=== PATIENT | female | born 1940 | race Caucasian/White ===

== ENCOUNTER 2022-02-01 06:21 | Outpatient (CLI) | payer MEDICARE, SELFPAY ==
--- NOTE | 2022-02-01 06:30 | CT_ITS ---
WS: [id number] CT LUMBAR SPINE TECHNIQUE: Noncontrast CT of the lumbar spine with coronal and sagittal reformatted images. CLINICAL INFORMATION: incapacitating lumbar / right leg pain 8 days COMPARISON: None. DLP: 1445.[address] scans at [facility] use at least one of these dose optimization techniques: automated e xposure control; mA and/or kV adjustment per patient size (includes targeted exams where dose is matc hed to clinical indication); or iterative reconstruction. FINDINGS: Thoracolumbar scoliosis. Lumbar curve convex RIGHT. No acute compression fractures. Grade 1 anterolis thesis L3 on L4. Disc space narrowing lower thoracic and lumbar spine with vacuum disc phenomenon. Di sc space narrowing worse at L3-L4 L4-L5. No acute appearing compression fractures. Degenerative arthr itis sacroiliac joints. Osteopenia. Lung bases are well aerated. Small esophageal hiatal hernia. Sple ramy artery calcification. Adrenal glands are normal. L1-L2: Mild annular bulging. Slight narrowing of the subarticular recess bilaterally. Mild bilateral foraminal narrowing. L2-L3: Mild disc bulging with osteophytic ridging. Mild central canal stenosis. Narrowing of the suba rticular recess bilaterally. Mild LEFT foraminal narrowing. Moderate facet arthropathy. L3-L4: Grade 1 anterolisthesis. Mild disc bulging with osteophytic ridging. Moderate central canal st enosis with impingement traversing L4 nerve roots. Advanced facet arthropathy. Moderate LEFT foramina l narrowing impinges the exiting LEFT L3 nerve root. L4-L5: Mild disc bulging and osteophytic ridging. Moderate facet arthropathy. Spinal canal is patent. Mild LEFT foraminal narrowing. L5-S1: Spinal canal and foramen are patent. Mild facet arthropathy. Incidental benign hemangiomas T12 and L1. CT/CT lumbar spine wo con* [id number] IMPRESSION: 1. Mild lumbar curve. No acute compression. 2. Mild central canal stenosis L2-L3 and moderate central canal stenosis L3-L4 with impingement traversing L4 nerve roots bilaterally. 3. Mild to moderate foraminal narrowing worse at LEFT L2-L3, LEFT L3-L4, 4. Moderate to advanced facet arthropathy L3-L4 L4-L5.
== END 2022-02-01 06:22 | disposition home or self-care (01) ==
PROVIDERS: PCP Family Medicine; Visit Provider Family Medicine
DX: M51.16 Intervertebral disc disorders with radiculopathy, lumbar region (principal); M51.36 Other intervertebral disc degeneration, lumbar region; M79.604 Pain in right leg; M48.061 Spinal stenosis, lumbar region without neurogenic claudication; M47.816 Spondylosis without myelopathy or radiculopathy, lumbar region; E11.9 Type 2 diabetes mellitus without complications
CPT/HCPCS: 72131; 80053; 83036; 85025

== ENCOUNTER 2022-04-13 15:00 | Inpatient (IN) | payer MEDICARE, SELFPAY ==
[2022-04-13 18:01] VITALS: BP 138/71; PULSE 93; RESP 19; O2SAT 97
--- NOTE | 2022-04-13 18:04 | PM.HP ---
Providers/Chief Complaint Admitting Physician: Rajesh England DPM Primary Care Provider: Rory Morton MD Chief Complaint: Left ft pain/ osteo History of Present Illness Sindy Acuña is a 81 year old female with past medical history of diabetes was sent from wound care clinic for management of severe infection of the left first metatarsal phalangeal joint with abscess formation.She is due for partial first ray amputation of the left foot by podiatry.Currently she will go on I.V ABxs and will be kept NPO after midnight. He Vitals and labs have been reviewed. Review of Systems General: Reports: 10 or more systems reviewed and unremarkable except in HPI and below Const: Denies: fever(s), chills, body aches, change in appetite or diaphoresis Card: Denies: palpitations, edema, swelling of feet/ankles, dyspnea on exertion, orthopnea or leg pain with exertion Resp: Denies: dyspnea, productive cough, wheezing or pain on inspiration GI: Denies: abdominal pain, nausea, vomiting, diarrhea or constipation : Denies: flank pain Musc: Denies: back pain, extremity pain or extremity swelling Neuro: Reports: difficulty walking; Denies: headache(s) or confusion Medications/Allergies Home Medications Medication Instructions Recorded Confirmed Last Taken Type aspirin 81 mg tablet,delayed 81 mg PO DAILY 01/29/22 04/13/22 Unknown History release (Adult Aspirin Regimen) cinnamon bark 500 mg capsule 500 mg PO DAILY 01/29/22 04/13/22 Unknown History cephalexin 750 mg capsule 750 mg PO BID #20 caps 04/10/22 04/13/22 Unknown Rx furosemide 20 mg tablet 20 mg PO QAM #20 tabs 04/10/22 04/13/22 Unknown Rx Allergies Allergy/AdvReac Type Severity Reaction Status Date / Time naproxen [From Aleve] Allergy Unknown Verified 04/13/22 12:53 PFSH Acute PFSH: Medical History Diabetes Family History Family/Other Cancer Diabetes Dementia Hypertension Stroke Denies family history of CAD (coronary artery disease) Hyperlipidemia Chronic kidney disease (CKD) Social History (Reviewed 04/13/22 @ 12:45 by BABATUNDE Araiza Smoking and tobacco status: former smoker Alcohol intake: never Lives independently: Yes Household members: spouse Physical Exam Resp: COMMON NORMALS: clear to auscultation bilaterally AUSCULTATION: clear to auscultation bilaterally Cardio: COMMON NORMALS: regular rate, regular rhythm, S1 normal heart sound present, S2 normal heart sound present, No gallops present (Cardio), No murmurs present (Cardio), No rub (Cardio) and Peripheral pulses 2+ throughout RATE: regular rate RHYTHM: regular rhythm HEART SOUNDS: S1 normal heart sound present and S2 normal heart sound present PERIPHERAL PULSES: Peripheral pulses 2+ throughout GI: COMMON NORMALS: Normal to inspection, nondistended, normoactive bowel sounds present, Soft to palpation, non-tender, No hepatosplenomegaly present and no masses AUSCULTATION: Yes normoactive bowel sounds PALPATION: Yes Soft to palpation and Yes No hepatosplenomegaly present RECTAL EXAM: deferred Extremity: COMMON NORMALS: no clubbing, cyanosis or edema and no pedal edema Data 04/14/22 04:38 04/14/22 04:38 A&P Assessment and plan (1) Diabetes: (2) Left hallux osteomyelitis: Plan Assessment: left hallux osteomyelitis Diabetes Plan: Follow ESR CRP Follow wound culture. Continue IV antibiotics with Vanco and [facility] on board CODE STATUS: Full code DVT prophylaxis: On Lovenox Attestations Medical Necessity Statement*: Patient is to be in hospital for management of osteomyelitis need for IV antibiotics. Anticipated length of stay greater than 2 midnights. 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
--- NOTE | 2022-04-13 18:21 | P.CONIM_ITS ---
Providers/Reason For Consult Consulting Physician/Specialty*: Podiatry Reason for Consult*: Left hallux osteomyelitis Attending Physician: Rajesh England DPM Primary Care Provider: Rory Morton MD History of Present Illness History of Present Illness Sindy Acuña is a 81 year old female with history of type 2 diabetes who presented to podiatry clinic this afternoon as a new patient for evaluation of left foot ulceration. Patient was noted at the visit to have severe infection of the left first metatarsal phalangeal joint with abscess formation. Through discussion with the patient and chart review was found that the patient was initially referred to podiatry back in January for an ulceration to the plantar aspect of the left hallux. The patient did not follow-up with podiatry as recommended by her primary care provider. Over the course of the past few months the infection continued to worsen until presentation today. Upon evaluation in clinic today she was sent for admission and IV antibiotic therapy in preparation for surgical intervention in the form of a partial first ray amputation of the left foot to be performed tomorrow 04/14/2022. Lengthy discussion was had with patient and patient's in regards to infection and that if it is not addressed surgically the infection could spread putting the patient's limb and life at risk. Review of Systems General: Reports: 10 or more systems reviewed and unremarkable except in HPI and below Const: Denies: fever(s), chills, body aches or change in appetite Eyes: Denies: change in vision or blurry vision Card: Denies: chest pain, palpitations or irregular heart rhythm Resp: Denies: dyspnea GI: Denies: abdominal pain, nausea, vomiting or diarrhea Musc: Reports: joint stiffness Skin/Breast: Reports: non-healing lesions and lesions Neuro: Reports: numbness in extremities Medications/Allergies Home Medications Medication Instructions Recorded Confirmed Last Taken Type aspirin 81 mg tablet,delayed 81 mg PO DAILY 01/29/22 04/13/22 Unknown History release (Adult Aspirin Regimen) cinnamon bark 500 mg capsule 500 mg PO DAILY 01/29/22 04/13/22 Unknown History cephalexin 750 mg capsule 750 mg PO BID #20 caps 04/10/22 04/13/22 Unknown Rx furosemide 20 mg tablet 20 mg PO QAM #20 tabs 04/10/22 04/13/22 Unknown Rx Allergies Allergy/AdvReac Type Severity Reaction Status Date / Time naproxen [From Aleve] Allergy Unknown Verified 04/13/22 12:53 PFSH Acute PFSH: Medical History Diabetes Family History Family/Other Cancer Diabetes Dementia Hypertension Stroke Denies family history of CAD (coronary artery disease) Hyperlipidemia Chronic kidney disease (CKD) Social History Smoking and tobacco status: former smoker Alcohol intake: never Lives independently: Yes Household members: spouse Physical Exam Narrative: GENERAL: A&O x 3 VASCULAR: DP/PT pulses palpable 2/4 with CFT intact, <3seconds to distal digits DERMATOLOGICAL: Diffuse erythema to left first metatarsophalangeal joint with erythema extending proximally to the level of the ankle joint. Alex purulence from the dorsal left first metatarsophalangeal joint wound with underlying fluctuance and positive probe to first metatarsal head bone. Plantar left hallux shows 0.5 cm circumferential full-thickness ulceration that probes to bone and tracks to dorsal aspect of left hallux. MUSCULOSKELETAL: Pain with palpation of first metatarsophalangeal joint of left foot. Pain with range of motion of first metatarsophalangeal joint left foot. NEUROLOGICAL: Neurological sensation to the affected foot and ankle is diminished through L4-S1 dermatomes via 10g SWMF, diminished sensation extends proximally to the level of the ankle IMAGIN views of the left foot taken at today's visit personally interpreted by me which show increased off tissue density about the left first metatarsophalangeal joint with chronic degenerative changes and osteolysis of the proximal phalanx of the left hallux. Cortical irregularities to first metatarsal head indicative of likely osteomyelitis. No subcutaneous emphysema noted. A&P Assessment and plan (1) Left hallux osteomyelitis: (2) Ulcer of toe of left foot: (3) Diabetes: Plan -Left hallux osteomyelitis with first metatarsophalangeal joint abscess -Labs and vitals reviewed -Cultures taken in clinic today sent to micro for ID and sensitivity. Results pending -Vanco/Zosyn -N.p.o. at midnight for procedure tomorrow 04/14/2022 -Plan for left foot partial first ray resection -Continue IV antibiotic therapy broad-spectrum pending ID and sensitivity -Discharge antibiotic plan, IV versus p.o. pending surgical debridement -Betadine, DSD wound care -Anticipate discharge in coming days once stabilizes -Dr. 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
[2022-04-13 20:00] VITALS: BP 103/58; PULSE 76; RESP 19; TEMP 37.2; O2SAT 95
[2022-04-13] MEDS: piperacillin-tazobactam 3.375 GM in sodium chloride 0.9% (plus) 50 ML IV (21:13)
[2022-04-13] MEDS: acetaminophen 325 mg Tablet 650 MG PO (23:59)
[2022-04-14] VITALS (11 sets, daily range): BP systolic 103–162; BP diastolic 60–83; PULSE 66–90; RESP 16–24; TEMP 36.1–37.3; O2SAT 90–96
[2022-04-14] MEDS: vancomycin 1,000 MG in sodium chloride 0.9% 250 ML 250 MG IV ×2 (00:25→18:01)
[2022-04-14] MEDS: piperacillin-tazobactam 3.375 GM in sodium chloride 0.9% (plus) 50 ML IV ×3 (04:06→19:53)
[2022-04-14 05:06] LABS: Basophils # 0.1 10^3/uL (0.0-0.1); Basophils % 0.6 %; Eosinophils # 0.3 10^3/uL (0.0-0.8); Eosinophils % 3.5 %; Hematocrit 32.5 % (37.0-47.0); Hemoglobin 10.9 g/dL (11.5-15.3); Lymphocytes # 1.8 10^3/uL (0.8-4.8); Lymphocytes % 20.2 %; Mean Corpuscular HGB Conc 33.5 g/dL (30.0-36.0); Mean Corpuscular Hemoglobin 30.8 pg (28.0-34.0); Mean Corpuscular Volume 91.8 fl (81-99); Mean Platelet Volume 11.2 fL (7.4-10.4); Monocytes # 0.9 10^3/uL (0.2-0.9); Monocytes % 10.3 %; Neutrophils # 5.81 10^3/uL (1.8-7.7); Nucleated Red Blood Cells % 0 %; Platelet Count 343 10^3/cmm (130-400); Red Blood Count 3.54 10^6/uL (4.1-5.3); Red Cell Distribution Width 12.5 % (12.1-15.1); White Blood Count 8.9 10^3/uL (4.0-10.0)
[2022-04-14 05:16] LABS: Erythrocyte Sedimentation Rate 41 mm/hr (0-15)
[2022-04-14 05:45] LABS: Anion Gap 14.3 (5-19); Blood Urea Nitrogen 13 mg/dL (8-23); C Reactive Protein 100.7 mg/L (0.0-4.9); Calcium 9.2 mg/dL (8.5-10.5); Carbon Dioxide 23 mmol/L (22-29); Chloride 101 mmol/L (98-107); Glucose 191 mg/dL (65-115); Osmolality Calculated 285 mOsm/kg (285-295); Potassium 3.3 mmol/L (3.5-5.1); Sodium 135 mmol/L (136-145)
--- NOTE | 2022-04-14 07:25 | W.PM.OPSUD ---
Surgery/Procedure H&P Update DATE OF PROCEDURE: April 14, 2022 DATE H&P PERFORMED: 04/13/22 CHANGES TO PREVIOUS DOCUMENTATION: No changes to previous documentation PRIMARY INDICATION FOR PROCEDURE: Left hallux acute on chronic osteomyelitis PLANNED PROCEDURE: Operation Date: 04/14/22 08:20 Proposed Procedures p left foot partial 1st ray amputation(Left) - Rajesh England DPM
--- NOTE | 2022-04-14 07:43 | P.ANESASSM_ITS ---
Pre-Anesthetic Assessment Height/Weight: Height 1.7 m Weight 63.185 kg Temp Pulse Resp BP Pulse Ox 98.1 F 69 20 H 116/79 96 04/14/22 04:53 04/14/22 04:53 04/14/22 04:53 04/14/22 04:53 04/14/22 04:53 Operation Date: 04/14/22 08:20 Proposed Procedures p left foot partial 1st ray amputation(Left) - Rajesh England DPM Familial anesthetic complications: none Was Beta Giacomo taken within 24 hours: N/A Was Clonidine taken within 24 hours: N/A Last intake: Intake Last Liquid Date 04/13/22 Last Liquid Time 23:59 Last Solid Date 04/13/22 Last Solid Time 17:00 Social No alcohol and No tobacco Exam alert, oriented x 3, clear to auscultation bilaterally and regular rate & rhythm Airway Mallampati: Class II Dentition: full Metabolic Diabetes Mellitus Anesthetic Plan ASA status: 3 Anesthesia: MAC Risk of > 500 ml blood loss (7ml/kg in children): No Medications/Allergies Home Medications Medication Instructions Recorded Confirmed Last Taken Type aspirin 81 mg tablet,delayed 81 mg PO DAILY 01/29/22 04/13/22 Unknown History release (Adult Aspirin Regimen) cinnamon bark 500 mg capsule 500 mg PO DAILY 01/29/22 04/13/22 Unknown History cephalexin 750 mg capsule 750 mg PO BID #20 caps 04/10/22 04/13/22 Unknown Rx furosemide 20 mg tablet 20 mg PO QAM #20 tabs 04/10/22 04/13/22 Unknown Rx Allergies Allergy/AdvReac Type Severity Reaction Status Date / Time naproxen [From Aleve] Allergy Unknown Verified 04/13/22 12:53 Current Medications Generic Name Dose Route Start Last Admin Trade Name Freq PRN Reason Stop Dose Admin Acetaminophen 650 mg 04/13/22 18:00 04/13/22 23:59 Acetaminophen 325 Mg Tablet PO 650 mg Q6H PRN Administration Mild/Mod Pain Or Temp >/= 101 Vancomycin HCl 1,000 mg/ 250 mls @ 250 mls/hr 04/13/22 23:00 04/14/22 01:25 Sodium Chloride IV Infused Q18H ARIE Infusion Protocol As Directed Piperacillin Sod/Tazobactam 50 mls @ 12.5 mls/hr 04/13/22 19:00 04/14/22 04:06 Sod 3.375 gm/ Sodium Chloride IV 12.5 mls/hr Q8H ARIE Administration Protocol [facility] Anesthesia Medical History Diabetes Family History Family/Other Cancer Diabetes Dementia Hypertension Stroke Denies family history of CAD (coronary artery disease) Hyperlipidemia Chronic kidney disease (CKD) Social History Smoking and tobacco status: former smoker Alcohol intake: never Lives independently: Yes Household members: spouse Data Anesthesia 04/14/22 04:38 04/14/22 04:38 Short CBC 04/14/22 Range/Units 04:38 WBC 8.9 (4.0-10.0) 10^3/uL Hgb 10.9 L (11.5-15.3) g/dL Hct 32.5 L (37.0-47.0) % MCV 91.8 (81-99) fl Plt Count 343 (130-400) 10^3/cmm Neut % (Auto) 65.0 % Neut # (Auto) 5.81 (1.8-7.7) 10^3/uL BMP 04/13/22 04/14/22 21:24 04:38 Sodium 135 L Potassium 3.3 L Chloride 101 Carbon Dioxide 23 BUN 13 Creatinine 0.8 0.7 Glucose 191 H Calcium 9.2 Coags 04/14/22 04/14/22 04:38 04:38 ESR 41 H C-Reactive Protein 100.7 H Cardiac Studies: No Data to Display
--- NOTE | 2022-04-14 09:11 | PM.OP ---
Operative Report Date of procedure: April 14, 2022 Pre-op diagnosis: Left hallux osteomyelitis Post-op diagnosis: Same Post-op findings: Degenerative changes of the left hallux proximal phalanx and head of first metatarsal consistent with osteomyelitis. Devitalized tissue surrounding first metatarsal head with tracking along the medial and plantar lateral aspect of the first metatarsal to the level of the longitudinal arch. Purulence enveloping the distal aspect of the first metatarsal head. Procedure done: Left foot partial first ray resection CPT 27228 Specimens removed/disposition: Left hallux cultures aerobic and anaerobic Pathology: Left hallux sent as routine surgical specimen. Left first metatarsal head sent fixed in formalin to evaluate proximal margin for osteomyelitis Surgeon: Dr. Rajseh England, D.P.M. 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 The patient has had the aforementioned chief complaint for some time. The patient presented to clinic yesterday as a new patient with edematous, erythematous and draining left hallux. The wound was noted to probe through and through the hallux and to first metatarsal head. Discussion was had with the patient regarding the extent of the infection and that it would require surgical intervention. A lengthy discussion regarding the procedure, including risks and complications has been had with the patient and is noted in the recent clinic note. Written and verbal consent have been obtained. All patient questions have been answered to the patient?ssatisfaction. No written or verbal guarantees have been given or implied. The patient has been NPO since midnight. The history has been reviewed and the history and physical is current. The signed consent was confirmed and placed in the patient chart. Patient imaging has been reviewed and is consistent with thediagnosis. Under mild sedation, the patient was brought into the operating room and left on the gurney in the supine position. The patient is receiving antibiotic therapy on the floor. IV sedation was then performed by the anesthesia team. A local field block using 30 cc of 0.5% Marcaine plain was then performed. A pneumatic tourniquet was then placed about the left ankle. The operative extremity was then prepped and draped in the usual fashion. The extremity was then elevated and exsanguinated before the tourniquet was inflated to 250 mmHg. After inflation, the following procedure was then performed. Procedure: Attention was directed to the left foot where a tennis racquet incision was made with the arm of the racquet medially around the hallux circumferentially. This incision was made full-thickness down to the level of bone using a #15 blade. Dissection was carried out to the level of the first metatarsal phalangeal joint the hallux was resected and passed from the operative field. There was noted to be purulence at the level of the metatarsal phalangeal joint. Cultures both aerobic and anaerobic were taken at this point. The surrounding tissue was noted to be mtz and discolored and devitalized. A rongeur and 15 blade were used to remove the surrounding devitalized tissue. The first metatarsal head was dissected free from surrounding soft tissue and evaluated. The distal aspect of the first metatarsal had the appearance of discoloration and degenerative changes to the distal aspect of the first metatarsal head. The bone quality was soft at this level as well. Sagittal bone saw was then used to perform an osseous cut through the midshaft of the first metatarsal. The capital fragment of first metatarsal head was then passed from the operative field to be sent to pathology for specimen. The site was evaluated and was noted to track medially plantarly as well as plantar lateral along the first metatarsal. Tracking did not track more proximal than the medial longitudinal arch. The site was expressed and no further purulence was noted. Devitalized tissue was removed using a rongeur. The site was then irrigated with copious amounts of sterile saline. After irrigation and removal of devitalized tissue, attention was directed to closure. The incision was closed with commendation of 2-0 and 3-0 Prolene in simple interrupted and retention type sutures. The incision was dressed with Betadine soaked Adaptic 4 x 4 gauze Kerlix and Kal bandage. The patient tolerated the procedure and anesthesia well and without complication. The patient was transported from the operating room to the recovery room with vital signs stable and vascular status intact to all digits of the left foot. The patient was instructed to remain nonweightbearing to the operative extremity, to keep surgical dressing clean, dry and intact. The patient will be transferred back to the floor once anesthesia criteria is met. I will continue to round on and follow the patient in the inpatient setting and provide recommendations to stabilize the patient for discharge. Given the surgical findings I spoke with the patient and the patient's that she will need to stay here in the hospital today and through the night. We will monitor her labs and vitals. I will round on the patient tomorrow morning and give further recommendations from podiatry standpoint
[2022-04-14] MEDS: enoxaparin 40 mg/0.4 mL Syringe SUBCUT (18:00)
[2022-04-14] MEDS: vancomycin 1,000 MG SDV 1000 MG (18:01)
--- NOTE | 2022-04-14 19:23 | P.PN_ITS ---
Subjective Subjective: Patient is scheduled for or today. Medications: Medication Review Details: Generic Name Dose Route Start Last Admin Trade Name Grayson PRN Reason Stop Dose Admin Acetaminophen 650 mg 04/13/22 18:00 04/13/22 23:59 Acetaminophen 32 5 Mg Tablet PO 650 mg Q6H PRN Administration Mild/Mod Pain Or Temp >/= 101 Enoxaparin Sodium 40 mg 04/13/22 18:00 04/14/22 18:00 Enoxaparin 40 Mg /0.4 Ml Syringe SUBCUT 40 mg Q24H ARIE Administration Vancomycin HCl 1,0 00 mg/ 250 mls @ 250 mls /hr 04/13/22 23:00 04/14/22 18:01 Sodium Chloride IV 250 mls/hr Q18H ARIE Administration Protocol As Directed Piperacillin Sod/T azobactam 50 mls @ 12.5 mls /hr 04/13/22 19:00 04/14/22 11:56 Sod 3.375 gm/ So dium Chloride IV 12.5 mls/hr Q8H ARIE Administration Protocol Vitals/I&O/Wt Last Vital Signs Temp 97.7 F 04/14/22 16:00 Pulse 90 04/14/22 18:10 Resp 18 04/14/22 16:00 BP 160/60 04/14/22 16:00 Pulse Ox 96 04/14/22 18:10 O2 Del Method 04/14/22 18:10 04/14/22 04/14/22 04/14/22 06:59 14:59 22:59 Intake Total 300 / 300 650 / 650 Output Total 600 / 600 25 / 25 Balance -300 / -300 625 / 625 Weight last 48 hrs Weight 63.185 kg Weight 67.041 kg Weight 67.041 kg Physical Exam Resp: COMMON NORMALS: clear to auscultation bilaterally AUSCULTATION: clear to auscultation bilaterally Cardio: COMMON NORMALS: regular rate, regular rhythm, S1 normal heart sound present, S2 normal heart sound present, No gallops present (Cardio), No murmurs present (Cardio), No rub (Cardio) and Peripheral pulses 2+ throughout RATE: regular rate RHYTHM: regular rhythm HEART SOUNDS: S1 normal heart sound present and S2 normal heart sound present PERIPHERAL PULSES: Peripheral pulses 2+ throughout GI: COMMON NORMALS: Normal to inspection, nondistended, normoactive bowel sounds present, Soft to palpation, non-tender, No hepatosplenomegaly present and no masses AUSCULTATION: Yes normoactive bowel sounds PALPATION: Yes Soft to palpation and Yes No hepatosplenomegaly present RECTAL EXAM: deferred Extremity: COMMON NORMALS: no clubbing, cyanosis or edema and no pedal edema Data 04/14/22 04:38 04/14/22 04:38 Micro: Microbiology 04/14/22 08:25 Gram Stain - Final Toe - #1 A&P Assessment and plan (1) Diabetes: (2) Left hallux osteomyelitis: Plan Assessment: left hallux osteomyelitis Diabetes Plan: Follow ESR CRP Follow wound culture. 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
[2022-04-14] MEDS: acetaminophen 325 mg Tablet 650 MG PO (22:01)
[2022-04-15 03:10] VITALS: BP 137/79; PULSE 72; RESP 18; TEMP 37.1; O2SAT 93
[2022-04-15] MEDS: piperacillin-tazobactam 3.375 GM in sodium chloride 0.9% (plus) 50 ML IV (03:13)
[2022-04-15 05:16] LABS: Basophils # 0.1 10^3/uL (0.0-0.1); Basophils % 0.5 %; Eosinophils # 0.4 10^3/uL (0.0-0.8); Eosinophils % 4.8 %; Hematocrit 33.2 % (37.0-47.0); Hemoglobin 11.1 g/dL (11.5-15.3); Lymphocytes # 1.5 10^3/uL (0.8-4.8); Lymphocytes % 15.7 %; Mean Corpuscular HGB Conc 33.4 g/dL (30.0-36.0); Mean Corpuscular Hemoglobin 30.9 pg (28.0-34.0); Mean Corpuscular Volume 92.5 fl (81-99); Mean Platelet Volume 10.9 fL (7.4-10.4); Monocytes % 10.7 %; Neutrophils # 6.25 10^3/uL (1.8-7.7); Neutrophils % 67.8 %; Nucleated Red Blood Cells % 0 %; Platelet Count 370 10^3/cmm (130-400); Red Blood Count 3.59 10^6/uL (4.1-5.3); Red Cell Distribution Width 12.5 % (12.1-15.1); White Blood Count 9.2 10^3/uL (4.0-10.0)
[2022-04-15] MEDS: acetaminophen 325 mg Tablet 650 MG PO (05:17)
[2022-04-15 05:41] LABS: Anion Gap 13.2 (5-19); Blood Urea Nitrogen 8 mg/dL (8-23); Calcium 8.9 mg/dL (8.5-10.5); Carbon Dioxide 24 mmol/L (22-29); Chloride 102 mmol/L (98-107); Glucose 187 mg/dL (65-115); Osmolality Calculated 285 mOsm/kg (285-295); Potassium 3.2 mmol/L (3.5-5.1); Sodium 136 mmol/L (136-145)
[2022-04-15 07:34] VITALS: BP 134/75; PULSE 74; RESP 16; TEMP 36.7; O2SAT 95
--- NOTE | 2022-04-15 08:01 | P.PN_ITS ---
Subjective Subjective: Patient seen at bedside this morning. Patient is resting comfortably. Denies any overnight events. States the pain is well controlled. She is extremely anxious and wants to leave the hospital as soon as possible. Her is with her at bedside. She denies any other pedal complaints this time. Denies any constitutional symptoms. Vitals/I&O/Wt Last Vital Signs Temp 98.1 F 04/15/22 07:34 Pulse 74 04/15/22 07:34 Resp 16 04/15/22 07:34 BP 134/75 04/15/22 07:34 Pulse Ox 95 04/15/22 07:34 O2 Del Method 04/15/22 07:34 04/14/22 04/15/22 04/15/22 22:59 06:59 14:59 Intake Total 300 / 950 790 / 1740 Output Total 1200 / 1225 1000 / 2225 Balance -900 / -275 -210 / -485 Weight last 48 hrs Weight 139 lb 9.6 oz Weight 139 lb 4.8 oz Weight 147 lb 12.8 oz Weight 147 lb 12.8 oz Physical Exam Narrative: GENERAL: A&O x 3 VASCULAR: DP/PT pulses palpable 2/4 with CFT intact, <3seconds to distal digits, edema left foot DERMATOLOGICAL: Left partial first ray resection incision well coapted with sutures intact. No evidence of dehiscence. Erythema of left foot is improved from yesterday. No active drainage no underlying fluctuance no malodor MUSCULOSKELETAL: Mild tenderness with palpation of periincisional area. Partial first ray resection left foot NEUROLOGICAL: Neurological sensation to the affected foot and ankle is diminished through L4-S1 dermatomes via 10g SWMF, diminished sensation extends proximally to the level of the ankle Data 04/15/22 04:55 04/15/22 04:55 Micro: Microbiology 04/14/22 08:25 Gram Stain - Final Toe - #1 A&P Assessment and plan (1) Left hallux osteomyelitis: (2) Ulcer of toe of left foot: (3) Diabetes: Plan -Status post left foot partial first ray resection DOS: 04/14/2022 -Labs and vitals reviewed WBC 9.2 VSS -Cultures: Coagulase positive staph -Vanco/Zosyn -Okay for diet -Okay to discharge home on p.o. antibiotics -Plan for p.o. clindamycin/ciprofloxacin. Prescription sent to patient preferred pharmacy. I will adjust antibiotic coverage as ID and sensitivity results -Patient to leave surgical dressing clean, dry, intact until follow-up in the office -Weightbearing as tolerated to left foot in postoperative shoe -Patient to follow-up with Dr. England in the clinic next week -Okay to discharge home per podiatry Attestations Medical Necessity Statement*: See above Coding Level of Care Code Acute Major Assembly Inspector for [facility] Fwd Diagnoses Left hallux osteomyelitis M86.9 Ulcer of toe of left foot L97.529 Diabetes E11.9
[2022-04-15 09:29] VITALS: PULSE 74; O2SAT 95
--- NOTE | 2022-04-15 10:38 | PM.DCS ---
Discharge Providers Date of Admission: 04/13/22 15:00 Date of Discharge: April 15, 2022 Attending Provider at Admission: Rajesh England DPM Attending Provider at Discharge: Rajesh England DPM Primary Care Provider: Rory Morton MD Diagnoses at Discharge Discharge Diagnosis (1) Left hallux osteomyelitis: Status: Acute (2) Ulcer of toe of left foot: Status: Acute (3) Diabetes: Status: Acute Reason for Visit Reason for Visit: Left ft pain/ osteo Hospital Course Hospital Course Sindy Acuña is a 81 year old female with past medical history of diabetes was sent from wound care clinic for management of severe infection of the left first metatarsal phalangeal joint with abscess formation.She underwent partial first ray amputation of the left foot by podiatry, she was kept on broad-spectrum antibiotic during the hospital stay, and was discharged on clindamycin and ciprofloxacin for 2 weeks, she will follow podiatry as outpatient. Physical Exam Resp: COMMON NORMALS: clear to auscultation bilaterally AUSCULTATION: clear to auscultation bilaterally Cardio: COMMON NORMALS: regular rate, regular rhythm, S1 normal heart sound present, S2 normal heart sound present, No gallops present (Cardio), No murmurs present (Cardio), No rub (Cardio) and Peripheral pulses 2+ throughout RATE: regular rate RHYTHM: regular rhythm HEART SOUNDS: S1 normal heart sound present and S2 normal heart sound present PERIPHERAL PULSES: Peripheral pulses 2+ throughout GI: COMMON NORMALS: Normal to inspection, nondistended, normoactive bowel sounds present, Soft to palpation, non-tender, No hepatosplenomegaly present and no masses AUSCULTATION: Yes normoactive bowel sounds PALPATION: Yes Soft to palpation and Yes No hepatosplenomegaly present RECTAL EXAM: deferred Extremity: COMMON NORMALS: no clubbing, cyanosis or edema and no pedal edema Discharge Data Studies Completed and Pending Pending at discharge Category Date Time Status Anaerobic Culture Routine Lab 04/14/22 08:25 Results Basic Metabolic Panel AM LABS Lab 04/16/22 04:00 Ordered Complete Blood Count w/Auto AM LABS Lab 04/16/22 04:00 Ordered Vancomycin Trough Timed Lab 04/16/22 04:00 Ordered Wound Culture and Gram Stain Routine Lab 04/14/22 08:25 Results Pathology: Surgical [PTH] Routine Pth 04/14/22 08:55 Ordered Laboratory Results WBC 9.2 10^3/uL (4.0-10.0) 04/15/22 04:55 RBC 3.59 10^6/uL (4.1-5.3) L 04/15/22 04:55 Hgb 11.1 g/dL (11.5-15.3) L 04/15/22 04:55 Hct 33.2 % (37.0-47.0) L 04/15/22 04:55 MCV 92.5 fl (81-99) 04/15/22 04:55 MCH 30.9 pg (28.0-34.0) 04/15/22 04:55 MCHC 33.4 g/dL (30.0-36.0) 04/15/22 04:55 RDW 12.5 % (12.1-15.1) 04/15/22 04:55 Plt Count 370 10^3/cmm (130-400) 04/15/22 04:55 MPV 10.9 fL (7.4-10.4) H 04/15/22 04:55 Neut % (Auto) 67.8 % 04/15/22 04:55 Lymph % (Auto) 15.7 % 04/15/22 04:55 Sterling % (Auto) 10.7 % 04/15/22 04:55 Eos % (Auto) 4.8 % 04/15/22 04:55 Baso % (Auto) 0.5 % 04/15/22 04:55 Neut # (Auto) 6.25 10^3/uL (1.8-7.7) 04/15/22 04:55 Lymph # (Auto) 1.5 10^3/uL (0.8-4.8) 04/15/22 04:55 Sterling # (Auto) 1.0 10^3/uL (0.2-0.9) H 04/15/22 04:55 Eos # (Auto) 0.4 10^3/uL (0.0-0.8) 04/15/22 04:55 Baso # (Auto) 0.1 10^3/uL (0.0-0.1) 04/15/22 04:55 Nucleated RBC % (auto) 0 % 04/15/22 04:55 Nucleated RBCs # 0.0 /100WBC 04/15/22 04:55 ESR 41 mm/hr (0-15) H 04/14/22 04:38 Sodium 136 mmol/L (136-145) 04/15/22 04:55 Potassium 3.2 mmol/L (3.5-5.1) L 04/15/22 04:55 Chloride 102 mmol/L (98-107) 04/15/22 04:55 Carbon Dioxide 24 mmol/L (22-29) 04/15/22 04:55 Anion Gap 13.2 (5-19) 04/15/22 04:55 BUN 8 mg/dL (8-23) 04/15/22 04:55 Creatinine 0.6 mg/dL (0.5-0.9) 04/15/22 04:55 GFR Calculation Not Reportable 04/15/22 04:55 Glucose 187 mg/dL (65-115) H 04/15/22 04:55 Calculated Osmolality 285 mOsm/kg (285-295) 04/15/22 04:55 Calcium 8.9 mg/dL (8.5-10.5) 04/15/22 04:55 C-Reactive Protein 100.7 mg/L (0.0-4.9) H 04/14/22 04:38 Procalcitonin 0.10 ng/mL (0-0.5) 04/14/22 04:38 Procalcitonin Cancelled 04/14/22 04:38 Vitals Last Vital Signs Temp 98.1 F 04/15/22 07:34 Pulse 74 04/15/22 09:29 Resp 16 04/15/22 07:34 BP 134/75 04/15/22 07:34 Pulse Ox 95 04/15/22 09:29 O2 Del Method 04/15/22 09:29 Discharge Plan Discharge Patient Disposition: Home Condition: Stable Prescriptions: New clindamycin HCl 300 mg capsule 300 mg PO Q8H 10 Days Qty: 30 0RF Rx Instructions: Take 1 capsule by mouth every 8 hours for 10 days ciprofloxacin HCl 500 mg tablet 500 mg PO Q12H Qty: 20 0RF Rx Instructions: Take 1 tablet by mouth every 12 hours Continued furosemide 20 mg tablet 20 mg PO QAM Qty: 20 0RF Discontinued cephalexin 750 mg capsule 750 mg PO BID Qty: 20 1RF Discharge Orders: Discharge Order (Routine); Ordered 04/15/22 Ordered By: Artur Rivera Referrals: Rajesh England DPM [Physician] - 4-7 days (Please call Saturday to schedule follow up appointment next week with Dr. England.) Patient Instructions: Ciprofloxacin (By mouth), Clindamycin (By mouth), Osteomyelitis (DC) Activity Restrictions/Additional Instructions: Please leave dressing to foot in place until your follow up appointment with Dr. England Discharge Attestations Time Spent in Discharge Care*: less than 30 min Quality Metrics Clinical Quality Measures [ No reported AMI, CVA or VTE this stay] Coding Level of Care Code Acute Chg FW DC note Exam Expanded Problem Focused Diagnoses Left hallux osteomyelitis M86.9 Ulcer of toe of left foot L97.529 Diabetes E11.9
[2022-04-15 11:50] VITALS: BP 132/78; PULSE 75; RESP 16; TEMP 36.7; O2SAT 96
== END 2022-04-15 12:10 | disposition home or self-care (01) | DRG 617 ==
PROVIDERS: Internal Medicine; Admitting Provider Podiatrist Foot & Ankle Surgery; PCP Family Medicine; Visit Provider Podiatrist Foot & Ankle Surgery
PROC: 0Y6Q0Z0 Detachment at Left 1st Toe, Complete, Open Approach (ICD-10-PCS; CPT 28810; principal; 2022-04-14 08:00)
DX: E11.69 Type 2 diabetes mellitus with other specified complication (principal); M86.8X7 Other osteomyelitis, ankle and foot; E11.621 Type 2 diabetes mellitus with foot ulcer; L97.529 Non-pressure chronic ulcer of other part of left foot with unspecified severity; Z87.891 Personal history of nicotine dependence
CPT/HCPCS: 36415; 73630; 80048; 82565; 84145; 85025; 85651; 86140; 87070; 87075; 87077; 87186; 87205; 88307; 88311; 96372; 99204; J1650; J2543; J2704; J3010; J3370; J3490; J7050

== ENCOUNTER → 2022-04-20 12:54 | Outpatient (BNVA) | payer MEDICARE, SELFPAY | PROVIDERS: PCP Family Medicine; Visit Provider Podiatrist Foot & Ankle Surgery | DX: Z98.890 Other specified postprocedural states (principal); M86.8X7 Other osteomyelitis, ankle and foot; E11.621 Type 2 diabetes mellitus with foot ulcer; L97.529 Non-pressure chronic ulcer of other part of left foot with unspecified severity; E11.9 Type 2 diabetes mellitus without complications; Z89.422 Acquired absence of other left toe(s) | CPT/HCPCS: 99024 ==

== ENCOUNTER → 2022-04-27 09:38 | Outpatient (BNVA) | payer MEDICARE, SELFPAY | PROVIDERS: PCP Family Medicine; Visit Provider Podiatrist Foot & Ankle Surgery | DX: Z98.890 Other specified postprocedural states (principal); M86.9 Osteomyelitis, unspecified; E11.621 Type 2 diabetes mellitus with foot ulcer; L97.529 Non-pressure chronic ulcer of other part of left foot with unspecified severity; E11.9 Type 2 diabetes mellitus without complications | CPT/HCPCS: 99024 ==

== ENCOUNTER → 2022-05-08 10:00 | Outpatient (BNVA) | payer MEDICARE, SELFPAY | PROVIDERS: PCP Family Medicine; Visit Provider Podiatrist Foot & Ankle Surgery | DX: Z98.890 Other specified postprocedural states (principal); E11.621 Type 2 diabetes mellitus with foot ulcer; Z89.422 Acquired absence of other left toe(s); L97.529 Non-pressure chronic ulcer of other part of left foot with unspecified severity; E11.9 Type 2 diabetes mellitus without complications | CPT/HCPCS: 99024 ==

== ENCOUNTER → 2022-06-11 09:59 | Outpatient (BNVA) | payer MEDICARE, SELFPAY | PROVIDERS: PCP Family Medicine; Visit Provider Podiatrist Foot & Ankle Surgery | DX: B35.1 Tinea unguium (principal); G62.9 Polyneuropathy, unspecified; Z89.412 Acquired absence of left great toe; E11.9 Type 2 diabetes mellitus without complications | CPT/HCPCS: 11721 ==

== ENCOUNTER → 2022-08-20 09:43 | Outpatient (BNVA) | payer MEDICARE, SELFPAY | PROVIDERS: PCP Family Medicine; Visit Provider Podiatrist Foot & Ankle Surgery | DX: E11.42 Type 2 diabetes mellitus with diabetic polyneuropathy (principal); B35.1 Tinea unguium; G62.9 Polyneuropathy, unspecified | CPT/HCPCS: 11721 ==

== ENCOUNTER → 2022-10-22 09:41 | Outpatient (BNVA) | payer MEDICARE, SELFPAY | PROVIDERS: PCP Family Medicine; Visit Provider Podiatrist Foot & Ankle Surgery | DX: E11.42 Type 2 diabetes mellitus with diabetic polyneuropathy (principal); L84 Corns and callosities; B35.1 Tinea unguium; G62.9 Polyneuropathy, unspecified; Z89.412 Acquired absence of left great toe; B35.3 Tinea pedis | CPT/HCPCS: 11055; 11721; 99213 ==

== ENCOUNTER → 2022-12-31 10:05 | Outpatient (BNVA) | payer MEDICARE, SELFPAY | PROVIDERS: PCP Family Medicine; Visit Provider Podiatrist Foot & Ankle Surgery | DX: B35.1 Tinea unguium (principal); E11.9 Type 2 diabetes mellitus without complications; Z89.412 Acquired absence of left great toe; B35.3 Tinea pedis | CPT/HCPCS: 11056; 11721 ==

== ENCOUNTER → 2023-03-15 10:05 | Outpatient (BNVA) | payer MEDICARE, SELFPAY | PROVIDERS: PCP Family Medicine; Visit Provider Podiatrist Foot & Ankle Surgery | DX: B35.1 Tinea unguium (principal); E11.9 Type 2 diabetes mellitus without complications; Z89.412 Acquired absence of left great toe; B35.3 Tinea pedis | CPT/HCPCS: 11055; 11721 ==

== ENCOUNTER → 2023-06-04 13:13 | Outpatient (BNVA) | payer MEDICARE, SELFPAY | PROVIDERS: PCP Family Medicine; Visit Provider Podiatrist Foot & Ankle Surgery | DX: B35.1 Tinea unguium (principal); Z89.412 Acquired absence of left great toe; B35.3 Tinea pedis; E11.69 Type 2 diabetes mellitus with other specified complication | CPT/HCPCS: 11721 ==

== ENCOUNTER → 2023-08-07 11:11 | Outpatient (BNVA) | payer MEDICARE, SELFPAY | PROVIDERS: PCP Family Medicine; Visit Provider Podiatrist Foot & Ankle Surgery | DX: E11.8 Type 2 diabetes mellitus with unspecified complications (principal); B35.1 Tinea unguium; Z89.412 Acquired absence of left great toe; B35.3 Tinea pedis | CPT/HCPCS: 99213 ==

== ENCOUNTER → 2023-10-21 14:36 | Outpatient (BNVA) | payer MEDICARE, SELFPAY | PROVIDERS: PCP Family Medicine; Visit Provider Podiatrist Foot & Ankle Surgery | DX: B35.1 Tinea unguium (principal); Z89.412 Acquired absence of left great toe; B35.3 Tinea pedis; E11.69 Type 2 diabetes mellitus with other specified complication | CPT/HCPCS: 11055 ==

== ENCOUNTER → 2024-04-20 13:00 | Outpatient (BNVA) | payer MEDICARE, SELFPAY | PROVIDERS: PCP Family Medicine; Visit Provider Podiatrist Foot & Ankle Surgery | DX: B35.1 Tinea unguium (principal); Z89.412 Acquired absence of left great toe; B35.3 Tinea pedis; E11.69 Type 2 diabetes mellitus with other specified complication | CPT/HCPCS: 11721 ==

== ENCOUNTER 2024-06-25 13:48 | Emergency (ER) | payer MEDICARE, SELFPAY ==
[2024-06-25 14:03] VITALS: BP 169/88; PULSE 86; RESP 18; TEMP 36.8; O2SAT 97
--- NOTE | 2024-06-25 14:06 | XRR_ITS ---
PROCEDURE INFORMATION: Exam: XR Right Hand Exam date and time: 06/25/2024 2:43 PM Age: 83 years old Clinical indication: Pain in right hand started this morning no injury TECHNIQUE: Imaging protocol: Radiologic exam of the right hand. Views: 1 or 2 views. COMPARISON: No relevant prior studies available. FINDINGS: Bones/joints: No fracture or other acute abnormality. There are diffuse interphalangeal degenerative changes most pronounced in the IP joint of the thumb and the D IP joint of the little finger. There is also narrowing of the 2nd and 3rd MCP joint spaces. Mild degenerative changes are seen in the 1st RETIREMENT joint. The bones are demineralized. Soft tissues: Normal. XR/XR hand RT 2V [address]180 IMPRESSION: Nonacute findings.
--- NOTE | 2024-06-25 15:32 | W.ED.EXTPRO ---
HPI - Extremity Problem General: Chief complaint: Extremity Injury, Upper Stated complaint: Rt hand pain Time Seen by Provider: 06/25/24 14:14 Source: patient Mode of arrival: ambulatory Limitations: no limitations History of Present Illness: Patient is an 83-year-old female that presents to the emergency department with pain in the right hand and wrist at the base of the thumb. She states she has had some mild swelling. She denies any numbness or tingling. She states she has had some intermittent neck pain but denies any pain at this time. She denies any fever or chills. She denies any red streaking from the area. She denies any traumatic injury but states she does use that hand to hold her cane which has been more difficult lately due to the pain. She reports an allergy to naproxen. She states she has not taken any medications for this. She denies any use of any medications at this time. She presents to the emergency department for further evaluation and treatment. Associated symptoms: Deny chest pain, fever(s) or rash Related Data Previous Rx's ?Medication ?Instructions ?Recorded furosemide 20 mg tablet 20 mg PO QAM #20 tabs 04/10/22 ciprofloxacin HCl 500 mg tablet 500 mg PO Q12H #20 tabs 04/15/22 custom heat molded inserts with #1 ea 05/08/22 toe filler diabetic shoe #1 ea 05/08/22 clotrimazole 1 % topical cream 1 applic topical BID 4 weeks #30 10/22/22 grams Allergies Allergy/AdvReac Type Severity Reaction Status Date / Time naproxen (From Aleve) Allergy Unknown Verified 04/20/24 13:05 Review of Systems General: Reports: 10 or more systems reviewed and unremarkable except in HPI and below Const: Denies: fever(s) or chills ENMT: Denies: throat pain Card: Denies: chest pain or irregular heart rhythm Resp: Denies: dyspnea, productive cough, non-productive cough or wheezing GI: Denies: abdominal pain, nausea or vomiting Musc: Reports: neck pain (Intermittent, bilateral, none now), joint pain (Right hand at the base of the thumb) and other (There is some mild swelling of the hand) Skin/Breast: Denies: rash or erythema Neuro: Denies: numbness in extremities, weakness in extremities or sensory changes PFSH ED PFSH: Medical History Left hallux osteomyelitis Ulcer of toe of left foot Diabetes Family History Family/Other Cancer Diabetes Dementia Hypertension Stroke Denies family history of CAD (coronary artery disease) Hyperlipidemia Chronic kidney disease (CKD) Social History (Updated 06/25/24 @ 15:35 by BRENNA Taylor) Smoking and tobacco/nicotine status: never used tobacco/nicotine Alcohol intake: never Substance/Drug Use: never Lives independently: Yes Household members: spouse Physical Exam Const: COMMON NORMALS: no acute distress, patient oriented x3 and alert EXAM LIMITATIONS: no altered mental status GENERAL APPEARANCE: cooperative HENMT: COMMON NORMALS: normocephalic, atraumatic and Normal external nose present HEAD & SCALP: normocephalic and atraumatic FACE & SINUS: normal facial exam and face symmetric NOSE: Normal external nose present MOUTH: Normal oral and palatal mucosa present THROAT: posterior oropharynx normal Eye: COMMON NORMALS: Equal, round and reactive pupils present and conjunctivae normal CONJUNCTIVA: Yes conjunctivae normal PUPIL: Yes Equal, round and reactive pupils present Neck/C-Spine: COMMON NORMALS: full ROM, no lymphadenopathy and supple GENERAL: Yes normal visual inspection CERVICAL SPINE: Yes cervical ROM normal Resp: COMMON NORMALS: normal respiratory effort, No retractions and clear to auscultation bilaterally AUSCULTATION: clear to auscultation bilaterally, no crackles, no rales, no rhonchi and no wheezes Cardio: COMMON NORMALS: regular rate and regular rhythm RATE: regular rate RHYTHM: regular rhythm Back/Pelvis: COMMON NORMALS: thoraco-lumbar ROM normal Extremity: NARRATIVE EXTREMITY EXAM: Patient does have tenderness at the base of the right thumb. There is no significant erythema or swelling. She did have a positive Arnoldo's test on the right. This appears consistent with de Quervain's tenosynovitis. Capillary refill is less than 2 seconds. Sensation intact. RIGHT UPPER EXTREMITY: Yes hand & digits Right hand and digits: Yes palpation (Patient does have tenderness at the base of the right thumb) and Yes hand special tests (Positive Arnoldo test on the right) Neuro: COMMON NORMALS: patient oriented x3, CN's II-XII intact bilaterally and moves all extremities SENSORIUM/ORIENTATION: Yes alert SENSORY EXAM: Yes extremities MOTOR EXAM: Pronator motor function not present Psych: COMMON NORMALS: mental status grossly normal Procedures Orthopedic Splinting/Casting Injury #1: Side: right Upper Extremity Injury Location: finger (Right thumb) Upper Extremity Immobilizer: aluminum form splint (Used to fabricate a thumb spica splint on the right) Additional Comments: AlumaFoam splint was used to make a thumb spica splint on the right. Course Vital Signs: Vital signs: Vital Signs Temperature 98.3 F 06/25/24 14:03 Pulse Rate 86 06/25/24 14:03 Respiratory Rate 18 06/25/24 14:03 Blood Pressure 169/88 06/25/24 14:03 Pulse Oximetry 97 06/25/24 14:03 Oxygen Delivery Me thod Room Air 06/25/24 14:03 MDM - Extremity (Nontraumatic) Medical Decision Making Patient was advised of the exam and radiology findings. There was some degenerative changes noted on the x-ray but no sign of acute fracture. The patient did have a positive Arnoldo test on the right with some tenderness at the base of the thumb. I feel she does have de Quervain's tenosynovitis. She was placed in AlumaFoam splint and advised to follow-up with the primary care provider for further evaluation and treatment. Recommended she keep the splint XR interpretation done by ED provider, pending radiology final review ED provider radiology interpretation(s): Degenerative changes noted. No fracture. Critical Care Time Critical Care Time: Critical Care Time: No Discharge Plan Discharge Patient Disposition: Home Clinical Impression: De Quervain's tenosynovitis, right Condition: Stable Prescriptions: No Action furosemide 20 mg tablet 20 mg PO QAM Qty: 20 0RF clotrimazole 1 % cream 1 applic topical BID 28 Days Qty: 30 0RF (DME) diabetic shoe See Rx Instructions .Route .MEDSUPPLY Qty: 1 0RF Rx Instructions: shoes only, no inserts (DME) custom heat molded inserts with toe filler See Rx Instructions .Route .MEDSUPPLY Qty: 1 0RF Rx Instructions: left hallux amputation ciprofloxacin HCl 500 mg tablet 500 mg PO Q12H Qty: 20 0RF Rx Instructions: Take 1 tablet by mouth every 12 hours Discharge Orders: Discharge ED (Routine); Ordered 06/25/24 Ordered By: Rowdy French Referrals: Rory Morton MD [Primary Care Provider] - Discharge Diet: Usual diet Discharge Activity: Limit activity as instructed Patient Instructions: Opioid Safety, Pain Management, De Quervain Disease (ED) Activity Restrictions/Additional Instructions: Take [id number] Tylenol as directed for pain. Ice 20 minutes at a time, 5 times throughout the day as needed for pain or swelling. If the ice makes the pain worse you may use moist heat instead. Follow-up with your doctor in 1 week for recheck. Return to the emergency department with any worsening symptoms such as increased pain, red streaking, fever or any other worsening symptoms. 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
[2024-06-25 16:00] VITALS: BP 131/79; PULSE 81; RESP 16; O2SAT 96
== END 2024-06-25 16:01 | disposition home or self-care (01) ==
PROVIDERS: Emergency Provider Physician Assistant; PCP Family Medicine
DX: M65.4 Radial styloid tenosynovitis [de Quervain] (principal)
CPT/HCPCS: 12345; 73120; 99283

== ENCOUNTER 2025-02-11 18:06 | Emergency (ER) | payer MEDICARE, SELFPAY ==
[2025-02-11 18:12] VITALS: BP 186/99; PULSE 102; RESP 18; TEMP 37.1; O2SAT 96
--- NOTE | 2025-02-11 18:12 | CTR_ITS ---
PROCEDURE INFORMATION: Exam: CT Head Without Contrast Exam date and time: 02/11/2025 6:43 PM Age: 84 years old Clinical indication: Stroke-like symptoms; Altered mental status/memory loss; Additional info: Symptoms of acute stroke TECHNIQUE: Imaging protocol: Computed tomography of the head without contrast. Radiation optimization: All CT scans at this facility use at least one of these dose optimization techniques: automated exposure control; mA and/or kV adjustment per patient size (includes targeted exams where dose is matched to clinical indication); or iterative reconstruction. Other technique: STROKE PROTOCOL was implemented. COMPARISON: No relevant prior studies available. RADIATION DOSE METRICS: Total DLP (mGy-cm): 1021.08 FINDINGS: Brain: No evidence of acute or subacute loss of mtz-white matter differentiation. 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 Small focal area of encephalomalacia in the left frontal lobe. No intracranial. No masses or midline shift. Moderate diffuse parenchymal volume loss and chronic microangiopathic white matter changes. Cerebral ventricles: No ventriculomegaly. Paranasal sinuses: Visualized sinuses are unremarkable. No fluid levels. Mastoid air cells: Visualized mastoid air cells are well aerated. Bones: Unremarkable. No acute fracture. Soft tissues: Unremarkable. Vasculature: Extensive atherosclerotic calcifications of the cavernous segments of the internal carotid arteries bilaterally. CT/CT head thrombolytic 37165 IMPRESSION: 1. No evidence of acute or subacute loss of mtz-white matter differentiation. If there is continued clinical suspicion for acute infarction, a dedicated MRI of the brain sized. 2. 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 Small focal area of encephalomalacia in the left frontal lobe. 3. Moderate diffuse parenchymal volume loss and chronic microangiopathic white matter changes. ASSESSMENT: ASPECTS ([place] Stroke Program Early CT Score) is 10.
--- OUTSIDE RECORDS SUMMARY | 2025-02-11 18:22 | XMS_ITS | Encounter Summary ---
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
--- OUTSIDE RECORDS SUMMARY | 2025-02-11 18:22 | XMS_ITS | Encounter Summary ---
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
--- OUTSIDE RECORDS SUMMARY | 2025-02-11 18:23 | XMS_ITS | Clinical Summary ---
Author Organization [facility] Address [address] [facility] [address] Care Team Providers Care Material Engineer Name Role Phone Non-Staff, Physician Primary Care Provider Unava ilable Allergies Active Allergy Reactions Criticality Noted Date Comments Naproxen Sodium Hives High 01/31/2012 Medications No known medications Active Problems No known active problems Family History Medical History Relation Name Comments Diabetes Maternal Grandfather Diabetes Paternal Grandmother Relation Name Status Comments Maternal Grandfather Paternal Grandmother Social History Tobacco Use Types Packs/Day Years Used Date Smoking Tobacco: Never Smokeless Tobacco: Never Alcohol Use Standard Drinks/Week Comments No 0 (1 standard drink = 0.6 oz pur e alcohol) Comments No Sex and Gender Information Value Date Recorded Sex Assigned at Not on file 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 Gender Identity Not on file Sexual Orientation Not on file Occupation Industry Job Start Date Job End Date Not on file Not on file Not on file Not on file Last Filed Vital Signs Vital Sign Reading Time Taken Comments Blood Pressure 148/80 09/30/2013 2:57 PM CDT Pulse 92 09/30/2013 2:57 PM CDT Temperature 36.9 C (98.5 F) 09/30/2013 2:57 PM CDT Respiratory Rate - - Oxygen Saturation 97% 09/30/2013 2:57 PM CDT Inhaled Oxygen Concentration - - Weight 97.9 kg (215 lb 12.8 oz) 09/30/2013 2:57 PM CDT Height 172.7 cm (5' 8 ) 09/30/2013 2:57 PM CDT Body Mass Index 32.81 09/30/2013 2:57 PM CDT Plan of Treatment Health Maintenance Due Date Last Done Comments DTAP/TDAP/TD VACCINES (1 - Tdap) 1960 PNEUMOCOCCAL VACCINE 50+ YEARS (1 of 1 - PCV) 07/28/18 92 ZOSTER VACCINE (1 of 2) 07/29/1991 OSTEOPOROSIS SCREENING 2006 RSV VACCINE (60+ or ) (1 - 1-dose 75+ series) 2016 INFLUENZA VACCINE (#1) 2024 [address] [place] [id number] MEDICARE PART A AND B [facility] Care Teams Material Engineer Relationship Specialty Start Date End Date Non-Staff, Physician NO ADDRESS ON FILE PCP - General 08/20/13
--- OUTSIDE RECORDS SUMMARY | 2025-02-11 18:23 | XMS_ITS | Encounter Summary ---
Author Organization [facility] Address [address] [place] [address] Care Team Providers Care Roto Mixer Operator Name Role Phone Non-Staff, Physician Primary Care Provider Unava ilable Encounter Details Date Type Department Care Team (Latest Contact Info) Description 05/26/2002 Outpatient Historical [facility] 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
--- OUTSIDE RECORDS SUMMARY | 2025-02-11 18:23 | XMS_ITS | Encounter Summary ---
Author Organization [facility] Address [address] [place] [address] Care Team Providers Care Solar Designer/Installer Name Role Phone Non-Staff, Physician Primary Care Provider Unava ilable Encounter Details Date Type Department Care Team (Late st Contact Info) Description 12/14/[address] [facility] [place] [address] 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
--- OUTSIDE RECORDS SUMMARY | 2025-02-11 18:23 | XMS_ITS | Encounter Summary ---
Author Organization [facility] Address [address] Attn: [place] [address] Care Team Providers Care Optical Scientist Name Role Phone Non-Staff, Physician Primary Care Provider Unava ilable Encounter Details Date Type Department Care Team (Late st Contact Info) Description 10/20/1996 Outpatient Historical Conversion, History Charly Sherman Social History Tobacco Use Types Packs/Day Years Used Date Smoking Tobacco: Never Assessed Comments Unknown Sex and Gender Information Value Date Recorded Sex Assigned at Not on file Legal Sex Female 4: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
--- OUTSIDE RECORDS SUMMARY | 2025-02-11 18:23 | XMS_ITS | Encounter Summary ---
Author Organization [facility] Address [address] [place] [address] Care Team Providers Care Regional Ehs Manager Name Role Phone Non-Staff, Physician Primary Care Provider Unava ilable Encounter Details Date Type Department Care Team (Latest Contact Info) Description 04/26/2004 Outpatient Historical [facility] [address] [place] [id number] Jose Eduardo Keene MD NO ADDRESS ON FILE DIABETES TYPE II W EYE MANIFESTATIONS ([facility]) (Primary Dx); REFRACTION DISORDER NOS Social History Tobacco Use Types Packs/Day Years Used Date Smoking Tobacco: Never Assessed Comments Unknown Sex and Gender Information Value Date Recorded Sex Assigned at Not on file Legal Sex Female 4:40 AM MEDICAL RESEARCH ASSOCIATE Gender Identity Not on file Sexual Orientation Not on file documented as of this encounter Plan of Treatment Not on file documented as of this encounter Visit Diagnoses Diagnosis Type II or unspecified type diabetes mellitus with ophthalmic manifestations, not stated as uncontrolled(250.50) (CMS/[facility])- Primary Type II or unspecified type diabetes mellitus with ophthalmic manifestations, not stated as uncontrolled Unspecified disorder of refraction and accommodation documented in this encounter Care Teams Regional Ehs Manager Relationship Specialty Start Date End Date Non-Staff, Physician NO ADDRESS ON FILE PCP - General 08/20/13 documented as of this encounter
--- OUTSIDE RECORDS SUMMARY | 2025-02-11 18:23 | XMS_ITS | Encounter Summary ---
Author Organization [facility] Address [address] [place] [address] Care Team Providers Care Mechanical Unit Repairer Name Role Phone Non-Staff, Physician Primary Care Provider Unava ilable Encounter Details Date Type Department Care Team (Late st Contact Info) Description 01/30/2000 Outpatient Historical [facility] [place] [address] [facility] [address] [place] [address] Charly Sherman Social History Tobacco Use Types Packs/Day Years Used Date Smoking Tobacco: Never Assessed Comments Unknown Sex and Gender Information Value Date Recorded Sex Assigned at Not on file Legal Sex Female 4:07 AM COUNTY JUDGE Gender Identity Not on file Sexual Orientation Not on file documented as of this encounter Plan of Treatment Not on file documented as of this encounter Visit Diagnoses Not on filedocumented in this encounter Care Teams Mechanical Unit Repairer Relationship Specialty Start Date End Date Non-Staff, Physician NO ADDRESS ON FILE PCP - General 08/20/13 documented as of this encounter
--- OUTSIDE RECORDS SUMMARY | 2025-02-11 18:23 | XMS_ITS | Encounter Summary ---
Author Organization [facility] Address [address] Attn: [place] [address] Care Team Providers Care Financial Foundations Representative Name Role Phone Non-Staff, Physician Primary Care Provider Unava ilable Encounter Details Date Type Department Care Team (Late st Contact Info) Description 08/14/1994 Outpatient Historical Charly Sherman Social History Tobacco Use Types Packs/Day Years Used Date Smoking Tobacco: Never Assessed Comments Unknown Sex and Gender Information Value Date Recorded Sex Assigned at Not on file Legal Sex Female 4:07 AM EDITOR IN 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
--- OUTSIDE RECORDS SUMMARY | 2025-02-11 18:23 | XMS_ITS | Encounter Summary ---
Author Organization [facility] Address [address] Attn: [place] [address] Care Team Providers Care Set Up Machinist Name Role Phone Non-Staff, Physician Primary Care Provider Unava ilable Encounter Details Date Type Department Care Team (Late st Contact Info) Description 10/16/1995 Outpatient Historical Charly Sherman Social History Tobacco Use Types Packs/Day Years Used Date Smoking Tobacco: Never Assessed Comments Unknown Sex and Gender Information Value Date Recorded Sex Assigned at Not on file Legal Sex Female 4:07 AM BIOASSAYIST Gender Identity Not on file Sexual Orientation Not on file documented as of this encounter Plan of Treatment Not on file documented as of this encounter Visit Diagnoses Not on filedocumented in this encounter Care Teams Set Up Machinist Relationship Specialty Start Date End Date Non-Staff, Physician NO ADDRESS ON FILE PCP - General 08/20/13 documented as of this encounter
--- OUTSIDE RECORDS SUMMARY | 2025-02-11 18:23 | XMS_ITS | Encounter Summary ---
Author Organization [facility] Address [address] Attn: [place] [address] Care Team Providers Care Hook And Eye Attacher Name Role Phone Non-Staff, Physician Primary Care Provider Unava ilable Encounter Details Date Type Department Care Team (Late st Contact Info) Description 10/21/1997 Outpatient Historical Conversion, History Charly Sherman Social History Tobacco Use Types Packs/Day Years Used Date Smoking Tobacco: Never Assessed Comments Unknown Sex and Gender Information Value Date Recorded Sex Assigned at Not on file Legal Sex Female 4:07 AM CLOTH SHADER Gender Identity Not on file Sexual Orientation Not on file documented as of this encounter Plan of Treatment Not on file documented as of this encounter Visit Diagnoses Not on filedocumented in this encounter Care Teams Hook And Eye Attacher Relationship Specialty Start Date End Date Non-Staff, Physician NO ADDRESS ON FILE PCP - General 08/20/13 documented as of this encounter
--- OUTSIDE RECORDS SUMMARY | 2025-02-11 18:23 | XMS_ITS | Encounter Summary ---
Author Organization [facility] Address [address] [place] [address] Care Team Providers Care Elevator Mechanic Name Role Phone Non-Staff, Physician Primary Care Provider Unava ilable Encounter Details Date Type Department Care Team (Latest Contact Info) Description 04/24/2005 Outpatient Historical [facility] Op[facility] 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 Gender Identity Not on file Sexual Orientation Not on file documented as of this encounter Plan of Treatment Not on file documented as of this encounter Visit Diagnoses Diagnosis Type II or unspecified type diabetes mellitus with ophthalmic manifestations, not stated as uncontrolled(250.50) (CMS/[facility])- Primary Type II or unspecified type diabetes mellitus with ophthalmic manifestations, not stated as uncontrolled Senile cataract, unspecified documented in this encounter Care Teams Elevator Mechanic Relationship Specialty Start Date End Date Non-Staff, Physician NO ADDRESS ON FILE PCP - General 08/20/13 documented as of this encounter
--- OUTSIDE RECORDS SUMMARY | 2025-02-11 18:23 | XMS_ITS | Encounter Summary ---
Author Organization [facility] Address [address] [facility] [place] [address] Care Team Providers Care Chorus Dancer Name Role Phone Non-Staff, Physician Primary Care Provider Unava ilable Encounter Details Date Type Department Care Team (Latest Contact Info) Description 04/14/2001 Outpatient Historical [facility] Jose Eduardo Keene MD NO ADDRESS ON FILE EPIPHORA NOS (Primary Dx); SENILE CORNEAL CHANGES Social History Tobacco Use Types Packs/Day Years Used Date Smoking Tobacco: Never Assessed Comments Unknown Sex and Gender Information Value Date Recorded Sex Assigned at Not on file Legal Sex Female 4:40 AM MARKET EDITOR Gender Identity Not on file Sexual Orientation Not on file documented as of this encounter Plan of Treatment Not on file documented as of this encounter Visit Diagnoses Diagnosis Epiphora, unspecified as to cause- Primary Senile corneal changes documented in this encounter Care Teams Chorus Dancer Relationship Specialty Start Date End Date Non-Staff, Physician NO ADDRESS ON FILE PCP - General 08/20/13 documented as of this encounter
--- OUTSIDE RECORDS SUMMARY | 2025-02-11 18:23 | XMS_ITS | Clinical Summary ---
Author Organization [facility] Address [address] [facility] Attn: Epic Prelude ADT [place] [address] Care Team Providers Care Quill Winder Name Role Phone Non-Staff, Physician Primary Care Provider Unava ilable Allergies Active Allergy Reactions Criticality Noted Date Comments Naproxen Sodium Hives High 01/31/2012 Family History Medical History Relation Name Comments Diabetes Maternal Grandfather Diabetes Paternal Grandmother Relation Name Status Comments Maternal Grandfather Paternal Grandmother Social History Tobacco Use Types Packs/Day Years Used Date Smoking Tobacco: Never Smokeless Tobacco: Never Alcohol Use Standard Drinks/Week Comments No 0 (1 standard drink = 0.6 oz pur e alcohol) Comments Unknown Sex and Gender Information Value Date Recorded Sex Assigned at Not on file Legal Sex Female 4:07 AM TITRATOR Gender Identity Not on file Sexual Orientation Not on file Plan of Treatment Health Maintenance Due Date Last Done Comments DTAP/TDAP/TD VACCINES (1 - Tdap) 1960 PNEUMOCOCCAL VACCINE 50+ YEARS (1 of 1 - PCV) 07/28/18 92 ZOSTER VACCINE (1 of 2) 07/29/1991 OSTEOPOROSIS SCREENING 2006 RSV VACCINE (60+ or ) (1 - 1-dose 75+ series) 2016 INFLUENZA VACCINE (#1) 2024 Colorectal Cancer Screening Discontinued FIT/FOBT Q 1 year Discontinued 12/14/1998 COLORECTAL SCREENING Discontinued FIT-DNA Q 3 years Discontinued Flex Sig/CT Colonography Q 5 years Discontinued Care Teams Quill Winder Relationship Specialty Start Date End Date Non-Staff, Physician NO ADDRESS ON FILE PCP - General 08/20/13
[2025-02-11 19:05] LABS: Hematocrit 45.9 % (36-47); Hemoglobin 15.50 g/dL (11.27-16.99); Mean Corpuscular HGB Conc 33.8 g/dL (30-55); Mean Corpuscular Hemoglobin 31.4 pg (27-33); Mean Corpuscular Volume 92.9 fl (85-98); Nucleated Red Blood Cells % 0 %; Platelet Count 245 10^3/cmm (157-399); Red Blood Count 4.94 10^6/uL (3.85-5.65); White Blood Count 8.04 10^3/uL (3.29-11.43)
[2025-02-11 19:29] VITALS: BP 188/87; PULSE 84; RESP 18; O2SAT 98
[2025-02-11 19:30] LABS: INR 0.95 (0.8-1.2); Prothrombin Time 13.40 SECONDS (12.1-14.9)
[2025-02-11 19:31] LABS: Partial Thromboplastin Time 32.5 SECONDS (23.9-36.7)
[2025-02-11 19:32] LABS: Ketone (Acetest) Serum Negative (Negative)
[2025-02-11 19:33] LABS: Alanine Aminotransferase 11 U/L (0-33); Albumin Level 4.8 g/dL (3.5-5.2); Alkaline Phosphatase 124 U/L (35-105); Anion Gap 20.8 (5-19); Aspartate Amino Transferase 21 U/L (0-32); Blood Urea Nitrogen 16 mg/dL (8-23); Calcium 10.0 mg/dL (8.5-10.5); Carbon Dioxide 21 mmol/L (22-29); Chloride 103 mmol/L (98-107); Globulin 3.3 g/dL (1.3-4.6); Glucose 146 mg/dL (65-115); Osmolality Calculated 296 mOsm/kg (285-295); Potassium 3.8 mmol/L (3.5-5.1); Sodium 141 mmol/L (136-145); Total Protein 8.1 g/dL (6.6-8.7)
[2025-02-11 19:35] LABS: Lactic Sepsis W/Reflex 1.6 mmol/L (0.5-2.2)
--- NOTE | 2025-02-11 19:47 | ED_ITS ---
HPI - Recheck/Abnormal Lab/Rx 2 General: Chief Complaint: Recheck/Abnormal Lab/Rx Stated Complaint: diabetic, slurred speech, no chest pain Time Seen by Provider: 02/11/25 19:15 History of Present Illness: 84-year-old female with a history of str roz, diabetes, And peripheral neuropathy who presents emergency room with altered mental status. This been going on for couple of days. She has had some slurred speech. Weakness No focal motor deficits. She is able to ambulate still. She does require a walker. No known fevers. No vomiting. Related Data Previous Rx's ?Medication ?Instructions ?Recorded furosemide 20 mg tablet 20 mg PO QAM #20 tabs ciprofloxacin HCl 500 mg tablet 500 mg PO Q12H #20 tab s 04/15/22 custom heat molded inserts with #1 ea 05/08/22 toe filler diabetic shoe #1 ea 05/08/22 clotrimazole 1 % topical cream 1 applic topical BID 4 weeks #30 10/22/22 grams cefdinir 300 mg capsule 300 mg PO BID 10 days #20 ca ps 02/11/25 Allergies Allergy/AdvReac Type Severity Reaction Status Date / Time naproxen (From Aleve) Allergy Unknown Verified 04/20/24 13:05 Review of Systems 2 Narrative: Constitutional symptoms: Negative except as documented in HPI. Skin symptoms: Negative except as documented in HPI. Eye symptoms: Negative except as documented in HPI. ENMT symptoms: Negative except as documented in HPI. Respiratory symptoms: Negative except as documented in HPI. Cardiovascular symptoms: Negative except as documented in HPI. Gastrointestinal symptoms: Negative except as documented in HPI. Genitourinary symptoms: Negative except as documented in HPI. Musculoskeletal symptoms: Negative except as documented in HPI. Neurologic symptoms: Negative except as documented in HPI. Psychiatric symptoms: Negative except as documented in HPI. Endocrine symptoms: Negative except as documented in HPI. PFSH ED 2 PFSH: Medical History (Updated 02/11/25 @ 20:24 by Erin Fuentes MD) Left hallux osteomyelitis Ulcer of toe of left foot Diabetes Family History Family/Other Cancer Diabetes Dementia Hypertension Stroke Denies family history of CAD (coronary artery disease) Hyperlipidemia Chronic kidney disease (CKD) Social History (Updated 06/25/24 @ 15:35 by BRENNA Taylor) Smoking and tobacco/nicotine status: never used tobacco/nicotine Alcohol intake: never Substance/Drug Use: never Lives independently: Yes Household members: spouse Physical Exam 2 Narrative: EXAM NARRATIVE: General: Alert, no acute distress. Skin: Warm, dry. Head: Normocephalic, atraumatic. Neck: Supple, trachea midline. Eye: Extraocular movements are intact. Ears, nose, mouth and throat: mucosa moist. Cardiovascular: Regular, Normal peripheral perfusion. Respiratory: Lungs are clear to auscultation, respirations are non-labored, breath sounds are equal, Symmetrical chest wall expansion. Gastrointestinal: Soft, Nontender, Non distended Musculoskeletal: Normal ROM, no deformity. Neurological: Alert and oriented, No focal neurological deficit observed. Psychiatric: Cooperative, appropriate mood & affect. Course 2 Vital Signs: Vital signs: Vital Signs Temperature 98.8 F 02/11/25 18:12 Pulse Rate 84 02/11/25 19:29 Respiratory Rate 18 02/11/25 19:29 Blood Pressure 188/87 02/11/25 19:29 Pulse Oximetry 98 02/11/25 19:29 Oxygen Delivery Me thod Room Air 02/11/25 19:29 MDM - Recheck/Abnormal Lab/Rx Medical Decision Making Medical decision making: Differential diagnosis for patient presenting with generalized weakness including but not limited to and based on the above HPI, review of systems and physical exam: Sepsis. Dehydration. Renal failure. Electrolyte abnormalities. Anemia. Congestive heart failure. Hypotension. Coronary syndrome. Hepatitis. Cirrhosis. Infections such as pneumonia, urinary tract infection, [place] illness, Cellulitis, Viral infections including influenza and Covid-19. Workup: labwork and lab/exam driven imaging ordered to evaluate, rule in and rule out above pathologies. CT head: Old encephalomalacia but no acute intracranial process. No intracranial hemorrhage, no evidence of infarct. No evidence of acute fracture. This was reviewed and interpreted by myself the emergency room physician. I also reviewed the radiology report. EKG: Time 1949. Rate 75. Normal sinus rhythm, moderate ST depression, no ectopy, normal MA & QRS intervals, This was reviewed and interpreted by myself the ER physician at 1954 Chest x-ray: No acute process. No infiltrate. No pneumothorax. Films were interpreted by myself the emergency room provider and pending final radiology review. Lab Review: Laboratory results were reviewed and interpreted by myself the emergency room physician. No leukocytosis. No anemia. No renal failure. Sodium is normal. Urinalysis is positive for infection with 50-100 whites, 3+ bacteria and leukocyte esterase positive. I reviewed the patient's medical record. 84-year-old female with a history of stroke, diabetes, And peripheral neuropathy Reexamination: Patient remained stable. No increased work of breathing. No altered mental status. No focal motor deficits. Assessment and plan: Urinary tract infection Metabolic encephalopathy ?IV fluids and IV Rocephin in the emergency room - Discharged home - Discussed plan with patient. Answered any questions. - Evaluation and treatment of this problem were appropriate in the emergency setting. Lab Data 02/11/25 18:39 02/11/25 18:[address] 02/11/25 18:12 IMPRESSION: 1. No evidence of acute or subacute loss of mtz-white matter differentiation. If there is continued clinical suspicion for acute infarction, a dedicated MRI of the brain sized. 2. 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 Small focal area of encephalomalacia in the left frontal lobe. 3. Moderate diffuse parenchymal volume loss and chronic microangiopathic white matter changes. ASSESSMENT: ASPECTS ([place] Stroke Program Early CT Score) is 10. ADDENDUM: 02/11/25 1906 THIS REPORT CONTAINS FINDINGS THAT MAY BE CRITICAL TO PATIENT CARE. The findings were verbally communicated via telephone conference with ERIN FUENTES at 7:00 PM CDT on 02/11/2025. The findings were acknowledged and understood. Laboratory Results WBC 8.04 10^3/uL (3.29-11.43) 02/11/25 18: RBC 4.94 10^6/uL (3.85-5.65) 02/11/25 18: Hgb 15.50 g/dL (11.27-16.99) 02/11/25 18: Hct 45.9 % (36-47) 02/11/25 18: MCV 92.9 fl (85-98) 02/11/25 18: MCH 31.4 pg (27-33) 02/11/25 18: MCHC 33.8 g/dL (30-55) 02/11/25 18:39 RDW 12.5 % (12.1-15.1) 02/11/25 18:39 Plt Count 245 10^3/cmm (157-399) 02/11/25 18:39 MPV 11.1 fL (7.4-10.4) H 02/11/25 18:39 Neut % (Auto) 69.6 % 02/11/25 18:39 Lymph % (Auto) 20.0 % 02/11/25 18:39 [place] % (Auto) 8.0 % 02/11/25 18:39 Eos % (Auto) 1.5 % 02/11/25 18:39 Baso % (Auto) 0.7 % 02/11/25 18: Neut # (Auto) 5.59 10^3/uL (1.8-7.7) 02/11/25 18:39 Lymph # (Auto) 1.6 10^3/uL (0.8-4.8) 02/11/25 18:39 [place] # (Auto) 0.6 10^3/uL (0.2-0.9) 02/11/25 18:39 Eos # (Auto) 0.1 10^3/uL (0.0-0.8) 02/11/25 18:39 Baso # (Auto) 0.1 10^3/uL (0.0-0.1) 02/11/25 18:39 Nucleated RBC % (auto) 0 % 02/11/25 18: Nucleated RBCs # 0.0 /100WBC 02/11/25 18:39 PT 13.40 SECONDS (12.1-14.9) 02/11/25 18:39 INR 0.95 (0.8-1.2) 02/11/25 18:39 APTT 32.5 SECONDS (23.9-36.7) 02/11/25 18:39 Sodium 141 mmol/L (136-145) 02/11/25 18:39 Potassium 3.8 mmol/L (3.5-5.1) 02/11/25 18:39 Chloride 103 mmol/L (98-107) 02/11/25 18:39 Carbon Dioxide 21 mmol/L (22-29) L 02/11/25 18:39 Anion Gap 20.8 (5-19) H 02/11/25 18:39 BUN 16 mg/dL (8-23) 02/11/25 18:39 Creatinine 0.7 mg/dL (0.5-0.9) 02/11/25 18:39 GFR Calculation Not Reportable 02/11/25 18:39 Glucose 146 mg/dL (65-115) H 02/11/25 18:39 POC Glucose 147 mg/dL (70-110) H 02/11/25 19:13 Calculated Osmolality 296 mOsm/kg (285-295) H 02/11/25 18:39 Lactic Acid 1.6 mmol/L (0.5-2.2) 02/11/25 18:39 Calcium 10.0 mg/dL (8.5-10.5) 02/11/25 18:39 Total Bilirubin 1.0 mg/dL (0.15-1.2) 02/11/25 18:39 AST 21 U/L (0-32) 02/11/25 18:39 ALT 11 U/L (0-33) 02/11/25 18:39 Alkaline Phosphatase 124 U/L (35-105) H 02/11/25 18:39 Total Protein 8.1 g/dL (6.6-8.7) 02/11/25 18:39 Albumin 4.8 g/dL (3.5-5.2) 02/11/25 18:39 Globulin 3.3 g/dL (1.3-4.6) 02/11/25 18:39 Urine Color Yellow (Yellow) 02/11/25 19:34 Urine Appearance Clear (CLEAR) 02/11/25 19:34 Urine pH 6.5 (5-7) 02/11/25 19:34 Ur Specific [place] 1.013 (1.005-1.030) 02/11/25 19:34 Urine Protein Negative (Negative) 02/11/25 19:34 Urine Glucose (UA) Negative (Normal) 02/11/25 19:34 Urine Ketones 1+ (Negative) H 02/11/25 19:34 Urine Blood Trace (Negative) A 02/11/25 19:34 Urine Nitrate Negative (Negative) 02/11/25 19:34 Urine Bilirubin Negative (Negative) 02/11/25 19:34 Urine Urobilinogen 0.2 mg/dL (Negative) 02/11/25 19:34 Ur Leukocyte Esterase Trace (Negative) A 02/11/25 19:34 Urine RBC 5-10 /hpf (0-2) H 02/11/25 19:34 Urine WBC 51-100 /hpf (0-5) H 02/11/25 19:34 Ur Squamous Epith Cells 0-4 /hpf (0-5) H 02/11/25 19:34 Amorphous Sediment Not Reportable 02/11/25 19:34 Urine Bacteria 3+ /hpf (NONE) H 02/11/25 19:34 Urine Mucus None /hpf 02/11/25 19:34 Urine Opiates Screen Negative ng/mL (Negative) 02/11/25 19:34 Ur Barbiturates Screen Negative ng/mL (Negative) 02/11/25 19:34 Ur Phencyclidine Scrn Negative ng/mL (Negative) 02/11/25 19:34 Ur Amphetamines Screen Negative ng/mL (Negative) 02/11/25 19:34 U Benzodiazepines Scrn Negative ng/mL (Negative) 02/11/25 19:34 Urine Cocaine Screen Negative ng/mL (Negative) 02/11/25 19:34 U Marijuana (THC) Screen Negative ng/mL (Negative) 02/11/25 19:34 Serum Ketones Negative (Negative) 02/11/25 18:39 XR interpretation done by ED provider, pending radiology final review Discharge Plan Discharge Patient Disposition: Home Clinical Impression: Urinary tract infection, Encephalopathy, metabolic Condition: Stable Prescriptions: New cefdinir 300 mg capsule 300 mg PO BID 10 Days Qty: 20 0RF No Action furosemide 20 mg tablet 20 mg PO QAM Qty: 20 0RF clotrimazole 1 % cream 1 applic topical BID 28 Days Qty: 30 0RF (DME) diabetic shoe See Rx Instructions .Route .MEDSUPPLY Qty: 1 0RF Rx Instructions: shoes only, no inserts (DME) custom heat molded inserts with toe filler See Rx Instructions .Route .MEDSUPPLY Qty: 1 0RF Rx Instructions: left hallux amputation ciprofloxacin HCl 500 mg tablet 500 mg PO Q12H Qty: 20 0RF Rx Instructions: Take 1 tablet by mouth every 12 hours Discharge Orders: Discharge ED (Routine); Ordered 02/11/25 Ordered By: Erin Fuentes Referrals: Rory Morton MD [Primary Care Provider, [facility]] Discharge Diet: Usual diet Discharge Activity: Increase activity as tolerated Patient Instructions: Urinary Tract Infection in Older Adults (ED), Opioid Safety, Pain Management, Patient Portal & [place] Instructions Activity Restrictions/Additional Instructions: Thank you for choosing [facility] for your healthcare needs today. You have been screened and evaluated and felt safe for discharge. Health conditions do change or evolve sometimes and as such it is important that you follow up with your Primary Doctor to be re checked, 3-5 days is a general good time frame for follow up. You are always welcome to return to the ED for re assessment if your symptoms are worsening or you have new concerns Print Language: Azeri Coding Level of Care Code ED Section Weaver for Trinh Loco
--- NOTE | 2025-02-11 19:50 | ECG_ITS ---
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 Measurements Intervals [place] Rate: 75 P: 36 CO: 149 QRS: 65 QRSD: 105 T: 59 QT: 410 QTc: 458 Interpretive Statements SINUS RHYTHM POSSIBLE RIGHT VENTRICULAR CONDUCTION DELAY [RSR (QR) IN V1/V2] MODERATE ST DEPRESSION [0.05+ mV ST DEPRESSION] Compared to ECG 12/15/2017 16:39:59 ST (T wave) deviation now present Ectopic atrial rhythm no longer present Electronically Signed On 02-11-2025 23:27:56 CDT by Anthony Parks M.D. [email or web address]
--- NOTE | 2025-02-11 19:51 | XRR_ITS ---
PROCEDURE INFORMATION: Exam: XR Chest Exam date and time: 02/11/2025 7:52 PM Age: 84 years old Clinical indication: Other: Weakness TECHNIQUE: Imaging protocol: Radiologic exam of the chest. Views: 1 view. COMPARISON: No relevant prior studies available. FINDINGS: Lungs: Mild increased parenchymal density is noted in the left retrocardiac region. 5 mm nodule or sclerotic rib density in the lateral right mid lung zone. Pleural spaces: Unremarkable. No pleural effusion. No pneumothorax. Heart/Mediastinum: Unremarkable. No cardiomegaly. Diaphragm: Right hemidiaphragm is elevated. Bones/joints: Glenohumeral degenerative changes are present bilaterally, worse on the right. XR/XR chest 1V portable [id number] IMPRESSION: 1. Mild increased parenchymal density is noted in the left retrocardiac region. Finding could represent atelectasis or infiltrate/pneumonia. 2. 5 mm nodule or sclerotic rib density in the lateral right mid lung zone. Exclusion of pulmonary nodule can include oblique radiographs.
[2025-02-11 20:05] LABS: Glucose Urine UA Negative (Normal); Nitrate Urine Negative (Negative); Specific Gravity, Urine 1.013 (1.005-1.030)
[2025-02-11 20:12] LABS: PCP Screen Urine Negative (Negative)
[2025-02-11 20:19] LABS: Add Urine Microscopic? YES
[2025-02-11] MEDS: cefTRIAXone 1,000 mg SDV 1000 MG IVP (21:15)
[2025-02-11 21:43] VITALS: BP 164/79; PULSE 84; RESP 14; O2SAT 97
== END 2025-02-11 21:45 | disposition home or self-care (01) ==
PROVIDERS: Emergency Provider Emergency Medicine; PCP Family Medicine
DX: N39.0 Urinary tract infection, site not specified (principal); G93.41 Metabolic encephalopathy; E11.9 Type 2 diabetes mellitus without complications
CPT/HCPCS: 36415; 36416; 70450; 71045; 80053; 80306; 81001; 82009; 82962; 83605; 85025; 85610; 85730; 87040; 87077; 87086; 87186; 93005; 96374; 99285; J0696; J7040